=== PATIENT | female | born 1955 | race Caucasian/White ===

== ENCOUNTER 2023-03-30 15:30 | Inpatient (IN) ==
[2023-03-30] MEDS ORDERED: Labetalol IV 5 MG/ML 20 ml VIAL IV PUSH ONE ×3 (16:01→18:22)
[2023-03-30 16:11] LABS: ABS Basophils 0.1 10^3/uL (0.0-0.1); ABS Eosinophils 0.2 10^3/uL (0.0-0.5); ABS Lymphocytes 2.6 10^3/uL (1.0-4.8); ABS Monocytes 0.7 10^3/uL (0.0-0.9); ABS Nucleated RBC 0.01 10^3/ul; Eosinophil % 2.3 %; Hematocrit 42.4 % (35-45); Hemoglobin 14.5 g/dL (11.5-14.3); Lymphocyte % 34.6 %; Mean Corpuscular Hemoglobin 33.1 pg (27-33); Mean Corpuscular Hgb Conc 34.3 g/dL (31-36); Mean Corpuscular Volume 96.7 fL (80-97); Mean Platelet Volume 7.2 fL (7.5-11.2); Nucleated Red Blood Cells % 0.1 /100 WBC (0.0-0.4); Platelet Count 331 10^3/uL (150-450); Red Blood Count 4.39 10^6/uL (3.63-4.92); Red Cell Distribution Width 14.4 % (12-17); White Blood Count 7.5 10^3/uL (3.8-11.8)
[2023-03-30 16:31] LABS: INR 0.9 (0.88-1.18)
[2023-03-30 16:32] LABS: Albumin 4.3 g/dL (3.2-5.2); Albumin/Globulin Ratio 1.3 (1-3); Calcium 9.7 mg/dL (8.6-10.3); Creatinine, Serum 0.88 mg/dL (0.51-0.95); Globulin 3.4 g/dL (2-4); Magnesium 1.7 mg/dL (1.9-2.7); Potassium 3.9 mmol/L (3.5-5.0); Total Bilirubin 0.8 mg/dL (0.2-1.0); Total Protein 7.7 g/dL (6.4-8.9); eGFR CKD-EPI 71.1 (>60)
[2023-03-30] MEDS ORDERED: Magnesium Sulfate 2 gm BAG 2 GM/50 ML BAG IVPB ONE (17:15)
[2023-03-30 17:50] LABS: High Sensitivity Troponin 1 Hr 6 pg/mL (<15)
[2023-03-30] MEDS ORDERED: niCARdipine 0.1MG/ML IVPREMIX 20 MG/200 ML BAG IV SCH ×3 (18:00→20:00)
[2023-03-30] MEDS ORDERED: Enoxaparin 40 MG/0.4 ML SYR SUBCUT SCH (19:00)
[2023-03-30] MEDS: Multivitamins/Minerals TAB PO SCH (19:44)
[2023-03-30] MEDS: Thiamine 100 MG/ML 2 ml VIAL (200 mg) IM ONE ×2 (19:52→21:07)
[2023-03-30] MEDS ORDERED: Thiamine 100 MG/ML 2 ml VIAL (200 mg) IV ONE (20:07)
[2023-03-30] MEDS ORDERED: Magnesium Sulfate IV 3 GM in NS 0.9% 100 ml BAG 100 ML IVPB ONE (20:11)
[2023-03-30] MEDS ORDERED: Magnesium Sulfate 2 GM IV (Premix) IVPB ONE (21:00)
[2023-03-30 21:06] LABS: HDL Cholesterol 89.6 mg/dL
[2023-03-30] MEDS: Labetalol IV 5 MG/ML 20 ml VIAL IV PUSH SCH ×2 (21:07→22:39)
[2023-03-30] MEDS ORDERED: Magnesium Sulfate 1 GM IV 1 GM/100 ML BAG IV ONE (23:00)
[2023-03-30] MEDS ORDERED: NORMOSOL-R pH 7.4 1000 mL BAG 500 ML IV SCH (23:00)
[2023-03-30 23:03] LABS: Urine Appearance Clear; Urine Bilirubin Negative (Negative); Urine Blood Negative (Negative); Urine Color Straw; Urine Glucose Negative (Negative); Urine Ketones Negative (Negative); Urine Nitrite Negative (Negative); Urine Protein Negative (Negative); Urine Specific Gravity 1.004 (1.002-1.030); Urine Urobilinogen Negative (Negative)
[2023-03-31 04:30] LABS: Hematocrit 40.4 % (35-45); Hemoglobin 13.8 g/dL (11.5-14.3); Mean Corpuscular Hemoglobin 32.6 pg (27-33); Mean Corpuscular Hgb Conc 34.1 g/dL (31-36); Mean Corpuscular Volume 95.7 fL (80-97); Mean Platelet Volume 7.3 fL (7.5-11.2); Platelet Count 324 10^3/uL (150-450); Red Blood Count 4.22 10^6/uL (3.63-4.92); Red Cell Distribution Width 14.2 % (12-17); White Blood Count 8.5 10^3/uL (3.8-11.8)
[2023-03-31 04:45] LABS: Calcium 9.2 mg/dL (8.6-10.3); Creatinine, Serum 0.89 mg/dL (0.51-0.95); HDL Cholesterol 84.9 mg/dL; Magnesium 3.2 mg/dL (1.9-2.7); Potassium 3.7 mmol/L (3.5-5.0); eGFR CKD-EPI 70.1 (>60)
[2023-03-31] MEDS: Multivitamins/Minerals TAB PO SCH (09:00)
[2023-03-31 11:49] VITALS: BP 127/80
[2023-04-03 16:56] LABS: Renin 0.9 ng/mL/h
== END 2023-03-31 11:30 | disposition home or self-care (01) | DRG 305 ==
LOC: ED 15:30 → EDHOLD 18:28 → ICU 20:45
PROVIDERS: ADMIT Internal Medicine; ATTEND Internal Medicine

== ENCOUNTER 2024-04-22 17:27 | Inpatient (IN) ==
[2024-04-22 18:54] LABS: Hematocrit 26.7 % (35-45); Hemoglobin 9.1 g/dL (11.5-14.3); Mean Corpuscular Hemoglobin 30.6 pg (27-33); Mean Corpuscular Hgb Conc 34.1 g/dL (31-36); Mean Corpuscular Volume 89.8 fL (80-97); Mean Platelet Volume 8.3 fL (7.5-11.2); Platelet Count 166 10^3/uL (150-450); Red Blood Count 2.97 10^6/uL (3.63-4.92); Red Cell Distribution Width 16.4 % (12-17); White Blood Count 1.6 10^3/uL (3.8-11.8)
[2024-04-22] MEDS: LACTATED RINGERS IV ONE (19:18)
[2024-04-22] MEDS: Cefepime 2 GM in Dextrose 2 GM/50 ML BAG IV ONE (19:18)
[2024-04-22 19:30] LABS: Albumin 3.9 g/dL (3.2-5.2); Albumin/Globulin Ratio 1.4 (1-3); Creatinine, Serum 1.04 mg/dL (0.51-0.95); Globulin 2.8 g/dL (2-4); Potassium 4.1 mmol/L (3.5-5.0); Total Bilirubin 0.3 mg/dL (0.2-1.0); Total Protein 6.7 g/dL (6.4-8.9); eGFR CKD-EPI 57.8 (>60)
[2024-04-22 19:38] LABS: ABS Lymphocytes 0.8 10^3/uL (1.0-4.8); ABS Monocytes 0.2 10^3/uL (0.0-0.9); ABS Neutrophils 0.5 10^3/uL (1.5-7.6); Eosinophil % 2.3 %; Lymphocyte % 52.1 %; RBC Morphology Normal (Normal)
[2024-04-22 22:06] LABS: Urine Appearance Clear; Urine Bilirubin Negative (Negative); Urine Blood Negative (Negative); Urine Color Colorless; Urine Glucose Negative (Negative); Urine Ketones Negative (Negative); Urine Nitrite Negative (Negative); Urine Protein Negative (Negative); Urine Specific Gravity 1.006 (1.002-1.030); Urine Urobilinogen Negative (Negative)
[2024-04-22] MEDS: Enoxaparin 40 MG/0.4 ML SYR SUBCUT SCH (23:32)
[2024-04-23 11:05] LABS: Hematocrit 26.9 % (35-45); Hemoglobin 9.1 g/dL (11.5-14.3); Mean Corpuscular Hemoglobin 30.1 pg (27-33); Mean Corpuscular Hgb Conc 33.7 g/dL (31-36); Mean Corpuscular Volume 89.3 fL (80-97); Mean Platelet Volume 8.2 fL (7.5-11.2); Platelet Count 172 10^3/uL (150-450); Red Blood Count 3.02 10^6/uL (3.63-4.92); Red Cell Distribution Width 16.6 % (12-17); White Blood Count 1.6 10^3/uL (3.8-11.8)
[2024-04-23 11:46] LABS: ABS Lymphocytes 1.1 10^3/uL (1.0-4.8); ABS Monocytes 0.2 10^3/uL (0.0-0.9); ABS Nucleated RBC 0.01 10^3/ul; Eosinophil % 2.7 %; Lymphocyte % 68.5 %; Nucleated Red Blood Cells % 0.4 %/100WBC (0.0-0.8); RBC Morphology Normal (Normal)
[2024-04-23 11:55] LABS: Calcium 8.5 mg/dL (8.6-10.3); Creatinine, Serum 0.78 mg/dL (0.51-0.95); Magnesium 1.5 mg/dL (1.9-2.7); Potassium 3.6 mmol/L (3.5-5.0); eGFR CKD-EPI 81.7 (>60)
[2024-04-23 12:47] LABS: ABS Neutrophils 0.2 10^3/uL (1.5-7.6)
[2024-04-23] MEDS: Potassium Chlor 20 meq TAB.ER PO ONE (13:47)
[2024-04-23] MEDS: Magnesium Sulfate 2 gm BAG 2 GM/50 ML BAG IVPB ONE (13:51)
[2024-04-23] MEDS: FILGRASTIM 480 MCG/0.8 ML SYRINGE (NF) SUBCUT SCH (14:43)
[2024-04-23] MEDS: Cefepime 2 GM in Dextrose 2 GM/50 ML BAG IV SCH (15:02)
[2024-04-23] MEDS: Magnesium Sulfate IV 1GM/100ML 1 GM/100 ML BAG IV ONE (15:42)
[2024-04-24 06:16] LABS: Hematocrit 26.8 % (35-45); Hemoglobin 8.9 g/dL (11.5-14.3); Mean Corpuscular Hemoglobin 29.9 pg (27-33); Mean Corpuscular Hgb Conc 33.3 g/dL (31-36); Mean Corpuscular Volume 89.6 fL (80-97); Mean Platelet Volume 8.3 fL (7.5-11.2); Platelet Count 169 10^3/uL (150-450); Red Blood Count 2.99 10^6/uL (3.63-4.92); White Blood Count 2.7 10^3/uL (3.8-11.8)
[2024-04-24 07:04] LABS: Calcium 8.4 mg/dL (8.6-10.3); Creatinine, Serum 0.8 mg/dL (0.51-0.95); Magnesium 2.1 mg/dL (1.9-2.7); Potassium 4.6 mmol/L (3.5-5.0); eGFR CKD-EPI 79.2 (>60)
[2024-04-24 08:34] LABS: ABS Eosinophils 0.1 10^3/uL (0.0-0.5); ABS Lymphocytes 1.7 10^3/uL (1.0-4.8); ABS Monocytes 0.5 10^3/uL (0.0-0.9); ABS Neutrophils 0.4 10^3/uL (1.5-7.6); Eosinophil % 3.1 %; Lymphocyte % 63.1 %; Nucleated Red Blood Cells % 0.1 %/100WBC (0.0-0.8)
[2024-04-24 08:35] LABS: RBC Morphology Normal (Normal)
[2024-04-24] MEDS: Cefepime 2 GM in Dextrose 2 GM/50 ML BAG IV SCH (15:28)
[2024-04-25 08:12] LABS: Hematocrit 27.3 % (35-45); Hemoglobin 9.3 g/dL (11.5-14.3); Mean Corpuscular Hemoglobin 30.5 pg (27-33); Mean Corpuscular Hgb Conc 34.2 g/dL (31-36); Mean Corpuscular Volume 89.1 fL (80-97); Mean Platelet Volume 8.5 fL (7.5-11.2); Platelet Count 177 10^3/uL (150-450); Red Blood Count 3.06 10^6/uL (3.63-4.92); Red Cell Distribution Width 16.9 % (12-17); White Blood Count 3.3 10^3/uL (3.8-11.8)
[2024-04-25 08:26] LABS: ABS Neutrophils 0.9 10^3/uL (1.5-7.6)
[2024-04-25 08:31] LABS: Calcium 8.5 mg/dL (8.6-10.3); Creatinine, Serum 0.71 mg/dL (0.51-0.95); Magnesium 1.7 mg/dL (1.9-2.7); Potassium 4.1 mmol/L (3.5-5.0); eGFR CKD-EPI 91.4 (>60)
[2024-04-25 09:29] LABS: ABS Eosinophils 0.2 10^3/uL (0.0-0.5); ABS Lymphocytes 1.4 10^3/uL (1.0-4.8); ABS Monocytes 0.9 10^3/uL (0.0-0.9); Eosinophil % 5.6 %; Lymphocyte % 40.8 %; RBC Morphology Normal (Normal)
[2024-04-25 14:28] VITALS: BP 118/76
[2024-04-25 18:29] LABS: Anaplasma phagocytophilum Negative (Negative); B. miyamotoi PCR, B Negative (Negative); Babesia divergens/MO-1 Negative (Negative); Babesia ducani Negative (Negative); Ehrlichia chaffeensis Negative (Negative); Ehrlichia ewingii/canis Negative (Negative); Ehrlichia muris eauclairensis Negative (Negative)
== END 2024-04-25 15:09 | disposition home or self-care (01) | DRG 809 ==
LOC: EDHOLD 17:27 → ED 17:27 → SUATTDRO 21:21 → EDHOLD 23:04 → SSU 23:26 → SUATTDRO 04-24 10:06
PROVIDERS: ADMIT Internal Medicine; ATTEND Internal Medicine